=== PATIENT | male | born 1985 | race African-American/Black ===

== ENCOUNTER 2020-02-17 18:03 | Emergency (ER) | payer SELFPAY ==
[~2020-02-17] VITALS: Ht 182.9 cm; Wt 99.8 kg
[2020-02-17 19:17] VITALS: Ht 182.9 cm; Wt 99.8 kg
[2020-02-18 01:50] VITALS: BP 124/74
[2020-02-18 02:01] LABS: BASOPHIL % 0.4 % (0.2-1.5); PLATELET COUNT 186 x10^3mcL (152-348)
[2020-02-18 02:04] LABS: RED CELL DISTRIBUTION WIDTH 14.9 % (12.1-16.2)
[2020-02-18 02:20] LABS: CALCIUM 9.1 mg/dL (8.5-10.1); CARBON DIOXIDE 27.6 mmol/L (21-32); CHLORIDE SERUM 102 mmol/L (98-107); CREATININE SERUM 1.1 mg/dL (0.7-1.3); GFR1 > 60 mL/min; GLUCOSE SERUM 109 mg/dL (74-106); POTASSIUM SERUM 3.3 mmol/L (3.5-5.1); SODIUM SERUM 140 mmol/L (136-145)
[2020-02-18 02:23] LABS: ALBUMIN 4.2 g/dL (3.4-5.0); ALKALINE PHOSPHATASE 57 U/L (46-116); ALT/SGPT 24 U/L (16-63); AST/SGOT 20 U/L (15-37); BILIRUBIN TOTAL 0.76 mg/dL (0.20-1.00)
[2020-02-18 02:25] LABS: TOTAL PROTEIN, SERUM 8.3 g/dL (6.4-8.2)
== END 2020-02-18 02:10 | disposition home or self-care (01) ==
LOC: ED 18:03
PROVIDERS: Emergency Medicine
DX: S02.0XXA Fracture of vault of skull, initial encounter for closed fracture (principal); S80.01XA Contusion of right knee, initial encounter; Z98.890 Other specified postprocedural states; Y08.09XA Assault by strike by other specified type of sport equipment, initial encounter; Y93.89 Activity, other specified; Y92.89 Other specified places as the place of occurrence of the external cause; Y99.8 Other external cause status
CPT/HCPCS: 90715; G0480; J0696; J1953; J3010; J7060